=== PATIENT | female | born 1960 | race Caucasian/White ===

== ENCOUNTER 2020-06-09 10:04 | Emergency (ER) | payer BC ==
[~2020-06-09] VITALS: Ht 157.5 cm; Wt 90.7 kg
[2020-06-09] MEDS ORDERED: LACO50TA2 PO (10:41)
[2020-06-09] MEDS ORDERED: ONFI20 MG PO (10:42)
[2020-06-09] MEDS ORDERED: LEVE500 PO (10:42)
[2020-06-09] MEDS ORDERED: Zonegran100 MG PO (10:43)
== END 2020-06-09 11:18 | disposition home or self-care (01) ==
LOC: ER 10:04
DX: T42.6X1A Poisoning by other antiepileptic and sedative-hypnotic drugs, accidental (unintentional), initial encounter (principal); R40.0 Somnolence; G40.909 Epilepsy, unspecified, not intractable, without status epilepticus; Z79.899 Other long term (current) drug therapy
CPT/HCPCS: 99282